=== PATIENT | male | born 1960 | race Caucasian/White ===

== ENCOUNTER 2016-07-12 15:54 | Emergency (ER) | payer OTHER | END 2016-07-12 20:55 | disposition home or self-care (01) | LOC: ER1 15:54 | DX: S05.92XA Unspecified injury of left eye and orbit, initial encounter (principal); I10 Essential (primary) hypertension; E23.2 Diabetes insipidus; W18.30XA Fall on same level, unspecified, initial encounter; Y92.481 Parking lot as the place of occurrence of the external cause; Z23 Encounter for immunization | CPT/HCPCS: 70450; 70480; 70486; 72125; 90471; 90715; 99284 ==

== ENCOUNTER → 2016-08-28 | Outpatient (CLI) | payer OTHER | LOC: RT 13:35 | DX: I25.10 Atherosclerotic heart disease of native coronary artery without angina pectoris (principal) | CPT/HCPCS: 93005 ==

== ENCOUNTER → 2016-10-10 | Outpatient (CLI) | payer OTHER | LOC: HEART 5 13:25 | DX: R06.02 Shortness of breath (principal) | CPT/HCPCS: 94060; 94729 ==